=== PATIENT | female | born 1950 | race Caucasian/White ===

== ENCOUNTER 2022-11-16 11:20 | Emergency (ER) | payer MEDICARE ==
[~2022-11-16] VITALS: Ht 154.9 cm; Wt 50.3 kg
[~2022-11-16 11:20] MED LIST: ARAVA20 MG PO; FOLIC ACID1 MG PO; LEFLUNOMIDE20 MG PO; LEVOTHYROXINE50 MCG PO; METHOTREXATE2.5 MG PO; VITAMIN B-121000 MC2 PO; VITAMIN D1000 UNIT PO
== END 2022-11-16 12:00 | disposition home or self-care (01) ==
LOC: ER 11:41
DX: R20.2 Paresthesia of skin (principal); T45.515A Adverse effect of anticoagulants, initial encounter; M06.9 Rheumatoid arthritis, unspecified; Z86.718 Personal history of other venous thrombosis and embolism; Z96.653 Presence of artificial knee joint, bilateral
CPT/HCPCS: 99282